=== PATIENT | female | born 1965 | race Caucasian/White ===

== ENCOUNTER 2016-10-13 02:13 | Emergency (ER) | payer OTHER ==
--- NOTE | ~2016-10-13 | CT4 ---
[facility] A Service of [facility] & [facility] RADIOLOGY TEXT RESULTS PATIENT: IZABELA SCHROEDER LOCATION: [facility] : 65 UNIT #: [id number] AGE: [address]: Jose Scott MD SEX: F ORDER DR: [id number] [facility] [address] [place], [place] [address] [id number] E MR#: [id number] Acc #: [id number] NAME: IZABELA SCHROEDER. : 1965 SEX: F STUDY DATE/TIME: 10/13/2016 04:22 UNIT: [facility] ROOM: STUDY DESCRIPTION: CT Abd and Pelv Wo Cont Attending Physician: Jose Scott M.D. Ordering Physician: Jose Scott M.D. Primary Care Physician: No Primary Care Physician MEDICAL IMAGING REPORT This report is preliminary unless electronic signature is present EXAM Abdomen and pelvis CT 10/13/2016 at 05:19. INDICATIONS Right flank pain for 3 days with nausea. TECHNIQUE Axial noncontrast images were obtained through the abdomen and pelvis. Multiplanar reformats were obtained. This CT exam was performed with one or more of the following radiation dose reduction techniques: automatic exposure control, adjustment of mA and/or kV according to patient size, and iterative reconstruction. COMPARISON No comparison. FINDINGS Abdomen: Mild atelectasis is noted in the lower lobes. Gallbladder is normal. No renal or ureteral stones are seen. There is no hydronephrosis. The unenhanced solid organs are normal. There is no adenopathy or free fluid. The unopacified GI tract is normal. Pelvis: There are no lower ureteral stones. Bladder is normal. There is no free fluid. The appendix is normal. The remainder of the unopacified GI tract is normal as well. Uterus is enlarged and slightly retroflexed. There is a hypodense cystic appearing lesion in the right adnexa measuring about 2.5 cm. Immediately adjacent to this, is a slightly hyperdense ovoid lesion measuring about 2.8 cm. These are probably related to the right ovary and could reflect a hemorrhagic cyst or endometrioma or even a small ovarian nodule. Cyst is likely present as well. Followup with pelvic ultrasound is recommended. This could be performed non emergently if indicated. [facility] A Service of [facility] RADIOLOGY TEXT RESULTS PATIENT: IZABELA SCHROEDER LOCATION: [facility] : 65 UNIT #: [id number] AGE: [address]: Jose Scott MD SEX: F ORDER DR: IMPRESSION 1. No renal or ureteral stones. No hydronephrosis. 2. Normal unopacified GI tract including the appendix. 3. Enlarged uterus. 4. Complex right adnexal lesion which is probably the right ovary. It appears to have a cystic component of an ovoid more solid component. This may simply be due to presence of a hemorrhagic cyst or potentially even an endometrioma in the appropriate clinical setting. I would recommend followup with pelvic ultrasound for further characterization. This could potentially be performed non emergently if indicated. Dictated by... Andrea Negron Jr., M.D. THIS IS AN ELECTRONICALLY VERIFIED REPORT Andrea Negron Jr., M.D. at 10/13/2016 5:20 PM TRICE/tyler TD: 10/13/2016 11:03 JOB #: [id number] MEDICAL IMAGING REPORT Page 1 of 1 COPY
[2016-10-13 03:07] LABS: URINE SOURCE CLEAN CATCH
[2016-10-13 03:13] LABS: URINE APPEARANCE CLEAR; URINE BILIRUBIN NEG (NEG); URINE BLOOD NEG (NEG); URINE COLOR YELLOW; URINE GLUCOSE NEG (NEG); URINE KETONE NEG (NEG); URINE LEUKOCYTE ESTERASE NEG (NEG); URINE NITRATE NEG (NEG); URINE PROTEIN NEG (NEG); URINE SPECIFIC GRAVITY 1.026 (1.003-1.035)
[2016-10-13 03:18] LABS: CULTURE INDICATED? NO
== END 2016-10-13 05:42 | disposition home or self-care (01) ==
LOC: CED 02:13
DX: R10.9 Unspecified abdominal pain (principal); Z88.0 Allergy status to penicillin
CPT/HCPCS: 74176; 81003; 96372; 99284; J1885